=== PATIENT | female | born 1935 | race Caucasian/White ===

== ENCOUNTER → 2019-08-17 10:17 | Outpatient (BNVA) | payer MEDICARE, BC, SELFPAY | PROVIDERS: Visit Provider Nurse Practitioner Family | DX: Z00.00 Encounter for general adult medical examination without abnormal findings (principal); Z68.25 Body mass index [BMI] 25.0-25.9, adult; Z13.29 Encounter for screening for other suspected endocrine disorder; Z13.6 Encounter for screening for cardiovascular disorders; Z79.82 Long term (current) use of aspirin; Z79.899 Other long term (current) drug therapy | CPT/HCPCS: 36415; 80053; 80061; 84439; 84443 ==

== ENCOUNTER → 2020-03-20 08:46 | Outpatient (BNVA) | payer MEDICARE, BC, SELFPAY | PROVIDERS: Visit Provider Family Medicine | DX: E78.5 Hyperlipidemia, unspecified (principal); I50.9 Heart failure, unspecified | CPT/HCPCS: 80053; 80061 ==